=== PATIENT | female | born 1950 | race Caucasian/White ===

== ENCOUNTER 2019-02-03 07:57 | Day surgery (SDC) | payer MEDICARE, BC ==
[~2019-02-03 07:57] MED LIST: Lidocaine 2% 100 MG/5 ML Syringe ONE; Midazolam 1 MG/ML 2 ML SDV ONE; Propofol 200 MG/20 ML SDV ONE; Scopolamine 1.5 MG Transdermal Patch ONE
[2019-02-03] MEDS ORDERED: Sodium Chloride 0.9% 10 ML Syringe FLUSH PRN (08:00)
[2019-02-03] MEDS: Sodium Chloride 0.9% 1,000 ML IV SCH (09:01)
[2019-02-03] MEDS ORDERED: Lidocaine 2% 5 ML SDV IV ONE (09:20)
[2019-02-03] MEDS ORDERED: Propofol 200 MG/20 ML SDV IV ONE (09:20)
[2019-02-03] MEDS ORDERED: Ondansetron 4 MG/2 ML SDV IV ONE (09:20)
[2019-02-03] MEDS ORDERED: Midazolam 1 MG/ML 2 ML SDV IV ONE (09:20)
[2019-02-03] MEDS ORDERED: Scopolamine 1.5 MG Transdermal Patch TOP ONE (09:20)
--- NOTE | 2019-02-03 09:24 | PCM.PN ---
- General Info Date of Service: 02/03/19 - Review of Systems Systems Review Comment:: 68-year-old female referred for EGD and colonoscopy. She has been having symptoms of upper abdominal pain, nausea, and change in bowel habits. She denies having had a previous EGD or colonoscopy. I discussed the proposed upper and lower endoscopy with the patient. Risks such as but not limited to bleeding and GI injury reviewed. She agrees to proceed. Her recent history and physical is reviewed and no significant changes are noted. - Patient Data Vitals - Most Recent: Last Vital Signs Temp 98.4 F 02/03/19 08:00 Pulse 64 02/03/19 08:00 Resp 16 02/03/19 08:00 BP 127/68 02/03/19 08:00 Pulse Ox 97 02/03/19 08:00 Lab Results Last 24 Hours: Laboratory Results - last 24 hr 02/03/19 Range/Units 08:17 POC Glucose 149 H (74-106) mg/dl Med Orders - Current: Current Medications Sodium Chloride (Normal Saline) 1,000 mls @ 30 mls/hr IV ASDIRECTED DANYELLE Last Admin: 02/03/19 09:01 Dose: 30 mls/hr Sodium Chloride (Saline Flush) 10 ml FLUSH Q8HR PRN PRN Reason: keep vein open Discontinued Medications Lidocaine HCl (Xylocaine 2%) Confirm Administered Dose 100 mg .ROUTE .STK-MED ONE Stop: 02/03/19 07:52 Midazolam HCl (Versed 1 Mg/Ml) Confirm Administered Dose 2 mg .ROUTE .STK-MED ONE Stop: 02/03/19 07:51 Propofol (Diprivan 20 Ml) Confirm Administered Dose 400 mg .ROUTE .STK-MED ONE Stop: 02/03/19 07:51 Scopolamine (Transderm-Scop) Confirm Administered Dose 1.5 mg .ROUTE .STK-MED ONE Stop: 02/03/19 07:58 - Problem List Review Problem List Initiated/Reviewed/Updated: Yes - My Orders Last 24 Hours: My Active Orders 02/02/19 10:25 Resuscitation Status Routine 02/03/19 08:00 Blood Glucose Check, Bedside [RC] ONETIME Patient to Empty Bladder [RC] ASDIRECTED Peripheral IV Care [RC] . DIRECTED Verify Patient Consent Obtain [RC] ASDIRECTED Vital Signs [RC] PER UNIT ROUTINE Sodium Chloride 0.9% [Normal Saline] 1,000 ml IV ASDIRECTED Sodium Chloride 0.9% [Saline Flush] 10 ml FLUSH Q8HR PRN Peripheral IV Insertion Adult [OM.PC] Routine 02/03/19 Breakfast Nothing Per Oral Diet [DIET] - Assessment Assessment:: Upper abdominal pain Change in bowel habits - Plan Plan:: EGD and colonoscopy
--- NOTE | 2019-02-03 10:14 | PCM.OPNOTE ---
- General Post-Op/Procedure Note Date of Surgery/Procedure: 02/03/19 Operative Procedure(s): EGD with biopsy and Incomplete Colonoscopy (to Splenic Flexure) with Biopsy Findings: White mucosal covering in pharynx suggestive of thrush Small Hiatal Hernia Diffuse irregular mucosa along greater curvature External Hemorrhoids Normal distal colon Sharp Angulation of Splenic Flexure preventing safe advancement of scope past this point Pre Op Diagnosis: Upper Abdominal Pain. Change in Bowel Habits. Anemia Post-Op Diagnosis: Thrush. Hiatal Hernia. Gastritis. Hemorrhoids. Tortuous Colon [place]est[place] [facility] [place]geon: Candido Christina Pathology: Biopsies of Duodenum Gastric antrum and Greater Curvature Distal Esophagus Distal Colon EBL in mLs: 5 Complications: None Condition: Good
--- NOTE | 2019-02-03 15:55 | OR ---
DATE OF SURGERY: 02/03/2019 SURGEON: Candido Christina MD PREOPERATIVE DIAGNOSIS: Upper abdominal pain, change in bowel habits, anemia. POSTOPERATIVE DIAGNOSIS: Oropharyngeal thrush, hiatal hernia, gastritis, external hemorrhoids, and tortuous colon. OPERATION PERFORMED: Esophagogastroduodenoscopy with biopsy and incomplete colonoscopy to splenic flexure with biopsy. INDICATIONS FOR SURGERY: This is a 68-year-old female who has been having a two- month history of upper abdominal pain, change in bowel habits as well as some anemia. She has never had previous upper and lower endoscopy and is referred for these exams. FINDINGS: On an upper endoscopy, no visible signs of acute inflammation or bleeding is seen. She does have white patches and thick secretions at the base of the tongue and in the pharynx consistent with thrush. The esophagus appears normal. She has a small hiatal hernia, but without visible signs of inflammation in the lower esophagus. The gastric mucosa shows some diffuse irregularity along the greater curvature consistent with gastritis, but there is no active bleeding or evidence of acute inflammation. I did not see any signs of ulcers. Her duodenum looks normal to the third portion. On colonoscopy, moderate-sized external hemorrhoids are noted. The lining of the colon appears normal to the level of the splenic flexure where there is acute angulation. This acute angulation prevented safe advancement of the colonoscope past this point, so the transverse and ascending colon was not examined. The mucosa of the visualized colon did appear normal. DESCRIPTION OF PROCEDURE: The patient was taken to the operating room. She was given intravenous sedation and her throat is topically anesthetized. The gastroscope was inserted into the oropharynx and examination identified the white mucosal patches of thick secretions. The scope was then easily advanced down through the esophagus, stomach, and into the duodenum where examination to the third portion was performed. Random biopsies of the duodenum were taken to evaluate the patient's symptoms. The scope was withdrawn back into the stomach where full examination including retroflexed examination of the fundus was carried out. A small hiatal hernia was noted. Biopsies were taken randomly of the gastric antrum to rule out H. pylori as well as the greater curvature because of the irregular appearance. The GE junction was carefully examined and random biopsies were also taken of the distal esophagus. The scope was then removed and attention was turned to colonoscopy. Digital rectal exam was performed showing no rectal masses. The Olympus colonoscope was inserted into the rectum. Retroflexed examination of the rectal canal is performed. The scope was then carefully advanced to the left colon up to the level of the splenic flexure. At this level, there was an acute angulation and despite careful persistent manipulation, this angulation could not be safely traversed. The visualized mucosa all appeared normal. It was felt prudent to not risk colon perforation by further attempts at advancing through this very severe angled portion of the colon, so the scope was then slowly withdrawn re-examining the left colon. Random biopsies of the colon mucosa were taken because of the patient's symptoms. The examination was completed. The scope was removed and the patient was taken from the operating room in satisfactory condition. ESTIMATED BLOOD LOSS: 5 mL. COMPLICATIONS: None. PROGNOSIS: Good. /[id number]/MODL
== END 2019-02-03 12:31 | disposition home or self-care (01) ==
LOC: KA.SDS 07:57
PROVIDERS: ATTEND Surgery
DX: R19.4 Change in bowel habit (principal); K29.40 Chronic atrophic gastritis without bleeding; K44.9 Diaphragmatic hernia without obstruction or gangrene; K64.4 Residual hemorrhoidal skin tags; D64.9 Anemia, unspecified; B37.0 Candidal stomatitis; E11.9 Type 2 diabetes mellitus without complications; I10 Essential (primary) hypertension; E78.5 Hyperlipidemia, unspecified; E03.9 Hypothyroidism, unspecified; Z79.84 Long term (current) use of oral hypoglycemic drugs; Z79.899 Other long term (current) drug therapy; Z88.1 Allergy status to other antibiotic agents; Z88.5 Allergy status to narcotic agent; Z88.0 Allergy status to penicillin
CPT/HCPCS: 00813; 82962; A9270-GY; J2001; J2250; J2405; J2704; J7030